=== PATIENT | female | born 1965 | race Caucasian/White ===

== ENCOUNTER 2018-08-20 12:24 | Emergency (ER) | payer SELFPAY ==
[~2018-08-20] VITALS: Ht 175.3 cm; Wt 57.7 kg
[2018-08-20 12:30] VITALS: BP 116/64; PULSE 86; RESP 19; Ht 175.3 cm; Wt 57.7 kg
--- NOTE | 2018-08-20 13:23 | ERD ---
ER Documentation Chief Complaint Chief Complaint body pains and migraine headaches HPI 53-year-old female presents the emergency department complaining of chronic pain. Patient as per her cures report demonstrates a significant evidence of narcotic and nonnarcotic controlled substance use. Patient states she has fibromyalgia with chronic pain but reports no acute trauma or other acute symptoms. ROS All systems reviewed and are negative except as per history of present illness. PMhx/Soc Hx Alcohol Use: No Hx Substance Use: No Hx Tobacco Use: No Smoking Status: Never smoker Physical Exam Vitals Vital Signs Date Temp Pulse Resp B/P (MAP) Pulse Ox O2 O2 Flow FiO2 Time Delivery Rate 08/20/18 98.6 86 19 116/64 99 12:30 (81) Physical Exam GENERAL: The patient is well developed and appropriate for usual state of health in no apparent distress HEENT: Pupils equal, round, and reactive to light. EOMI. There is no scleral icterus. NECK: C-spine is soft and supple, there is no meningismus. There is no cervical lymphadenopathy. LUNGS: Clear to auscultation bilaterally. There are no rales, wheezes or rhonchi. HEART: Regular rate and rhythm, no murmurs, clicks, rubs or gallops. ABDOMEN: Soft, non-tender, non-distended. There are bowel sounds in all four quadrants. No rebound or guarding. EXTREMITIES: There is no peripheral cyanosis or edema. No focal swelling or erythema. NEURO: The patient moves all four extremities with 5/5 strength. Cranial nerves II - XII are intact. Normal gait. Alert and oriented SKIN: There is no apparent rash or petechiae. HEME/LYMPHATIC: There is no evidence of excessive bruising or lymphedema. PSYCHIATRIC: Awake alert oriented. She is intermittently tearful. Normal thought process. Procedures/MDM Patient was taken to a room, seen and examined Medical decision makin-year-old female presents with chronic pain issues. Medical screening examination shows no evidence of emergent medical condition. I have offered nonnarcotic treatment which she has declined. Patient has no other indications for other acute findings or concerns and seems appropriate for discharge. Departure Diagnosis: Primary Impression: Chronic pain Condition: Stable Patient Instructions: Chronic Pain KELLY ATWOOD Aug 20, 2018 13:23
== END 2018-08-20 15:33 | disposition home or self-care (01) ==
LOC: FTE 12:24
DX: R51 Headache (principal)
CPT/HCPCS: 99282

== ENCOUNTER 2018-08-23 13:33 | Emergency (ER) | payer MEDICAID ==
[~2018-08-23] VITALS: Wt 73.0 kg
[2018-08-23 13:35] VITALS: BP 128/79; PULSE 79; RESP 18
[2018-08-23] MEDS ORDERED: KETOROLAC 30 MG INJ IV STA (15:10)
[2018-08-23] MEDS ORDERED: ONDANSETRON 4 MG INJ IV STA (15:10)
--- NOTE | 2018-08-23 15:12 | ERD ---
ER Documentation Chief Complaint Chief Complaint QUINTANILLA X 5 DAYS HPI 53-year-old female, presents to the emergency department, complaining of worsening of throbbing headache for 5 days, associated with persistent nausea therefore, the patient reports a decrease in pain oral intake for fluids. She is requesting IV fluids and a shot of Toradol. Otherwise she denies blurred vision, no distal weakness, numbness or tingling. ROS All systems reviewed and are negative except as per history of present illness. Medications Home Meds Active Scripts Ondansetron Hcl* (Zofran*) 4 Mg Tablet, 4 MG PO Q8H PRN for NAUSEA AND/OR VOMITING, #12 TAB Prov:DAE INFANTE MD 08/23/18 Sumatriptan Succinate* (Sumatriptan Succinate*) 25 Mg Tablet, 25 MG PO BID PRN for MIGRAINE HEADACHE, #9 TAB May repeat after 2 hours if needed; MAX 200 mg/24 hours Prov:DAE INFANTE MD 08/23/18 Ubgoywdzksnyi-Zwtjipraxz-Bmqonipy-Codeine* (Fioricet w/Codeine*) [id number] Cap, 1 CAP PO TID PRN for PAIN LEVEL 1-5, #12 CAP Prov:DAE INFANTE MD 08/23/18 Allergies Allergies: Coded Allergies: No Known Allergy (Unverified , 08/23/18) PMhx/Soc Medical and Surgical Hx: pt denies Medical Hx History of Surgery: No Anesthesia Reaction: No Hx Neurological Disorder: No Hx Respiratory Disorders: No Hx Cardiac Disorders: No Hx Psychiatric Problems: No Hx Miscellaneous Medical Probl: No Hx Alcohol Use: No Hx Substance Use: No Hx Tobacco Use: No Physical Exam Vitals Vital Signs Date Temp Pulse Resp B/P (MAP) Pulse Ox O2 O2 Flow FiO2 Time Delivery Rate 08/23/18 98.1 79 18 128/79 99 13:35 (95) Physical Exam Const: No acute distress Head: Atraumatic Eyes: Normal Conjunctiva ENT: Normal External Ears, Nose and Mouth. Neck: Full range of motion. No meningismus. Resp: Clear to auscultation bilaterally Cardio: Regular rate and rhythm, no murmurs Abd: Soft, non tender, non distended. Normal bowel sounds Skin: No petechiae or rashes Back: No midline or flank tenderness Ext: No cyanosis, or edema Neur: Awake and alert Psych: Normal Mood and Affect Results 24 hrs Laboratory Tests Test 08/23/18 15:28 POC Beta HCG, Qualitative NEGATIVE Current Medications Medications Dose Sig/Yaw Start Time Status Last (Trade) Ordered Route PRN Stop Time Admin Dose Reason Admin Ketorolac 30 mg ONCE STAT 08/23/18 DC 08/23/18 Tromethamine IV 15:10 08/23/18 15:31 (Toradol) 15:22 Ondansetron 4 mg ONCE STAT 08/23/18 DC 08/23/18 HCl (Zofran IV 15:10 08/23/18 15:31 Inj) 15:22 Sodium 500 ml @ Q1H ONCE 08/23/18 DC 08/23/18 Chloride 500 mls/hr IV 15:30 08/23/18 15:31 16:28 Procedures/MDM Vital signs stable, Physical exam unremarkable, neurovascular exam intact. Differential diagnosis include but not limited to: Classical migraine, sinusitis, visual corrective problems, side effects of medications, dehydration, electrolyte imbalance, endocrine/autoimmune medical condition, stress, anxiety, tension headache. Low suspicion for meningitis, [employer] tumor, cerebrovascular event. Physical examination and clinical presentation consistent most likely with ten [place]renda headache. During the ED course the patient remained stable, no new complaints. The patient received treatment with Toradol IV presenting overall improvement of the symptoms. Results and clinical impression discussed with patient who agrees with raquel epps. The patient is stable to be treated outpatient and will be discharged home, some side effects of prescribed medications (headache, rash, nausea, vomiting, diarrhea, drowsiness, habituation, bleeding, hypertension, interactions with other medications) were reviewed. Follow up with the primary care provider in the next 48h has been recommended. If symptoms persist, worsen or new symptoms develop, then patient should return to the ED immediately. Instructions explained and given directly by me to the patient with acknowledgment and demonstrated understanding. Disclaimer: Inadvertent spelling and grammatical errors are likely due to EHR/dictation software use and do not reflect on the overall quality of patient care. Also, please note that the electronic time recorded on this note does not necessarily reflect the actual time of the patient encounter. Departure Diagnosis: Primary Impression: Migraine headache Condition: Stable Additional Instructions: Thank you very much for allowing us to participate in your care. Your health and safety is our top priority at [facility]. Call your primary care doctor TOMORROW for an appointment during the next 2-4 days and bring all the information and medications prescribed. Have prescriptions filled and follow precisely the directions on the label. If the symptoms get worse and your provider is unavailable, return to the Emergency Department immediately. DAE INFANTE MD Aug 23, 2018 15:12
[2018-08-23] MEDS ORDERED: ONDA4TAB8 PO (15:16)
[2018-08-23] MEDS ORDERED: ABCC1C PO (15:16)
[2018-08-23] MEDS ORDERED: SUMA25TA3 PO (15:16)
[2018-08-23] MEDS ORDERED: SOD CHLORIDE 0.9% 500 ML IV ONE (15:30)
== END 2018-08-23 16:28 | disposition home or self-care (01) ==
LOC: FTE 13:33
DX: G43.909 Migraine, unspecified, not intractable, without status migrainosus (principal)
CPT/HCPCS: 81025; 96374; 96375; J1885; J2405; J7040; Z7502

== ENCOUNTER 2018-12-29 15:44 | Emergency (ER) | payer MEDICAID, OTHER ==
[~2018-12-29] VITALS: Ht 167.6 cm; Wt 53.8 kg
[~2018-12-29 15:44] MED LIST: ABCC1C PO; ONDA4TAB8 PO; SUMA25TA3 PO; ZOLP5TAB PO
[2018-12-29 15:50] VITALS: Ht 167.6 cm; Wt 53.8 kg
[2018-12-29] MEDS ORDERED: LORAZEPAM 2 MG INJ IM ONE (18:00)
[2018-12-29 18:37] VITALS: BP 118/78; PULSE 77; RESP 18
== END 2018-12-29 18:38 | disposition home or self-care (01) ==
LOC: FTE 15:44
DX: F41.9 Anxiety disorder, unspecified (principal); G47.00 Insomnia, unspecified
CPT/HCPCS: 96372; J2060